=== PATIENT | male | born 1995 | race Caucasian/White ===

== ENCOUNTER 2016-12-29 15:03 | Emergency (ER) | payer MEDICAID ==
[2016-12-29 15:08] VITALS: PULSE 90; RESP 16
[2016-12-29] MEDS ORDERED: IBUPROFEN 600 MG TAB PO ONE (15:16)
--- NOTE | 2016-12-29 15:27 | EDPHY ---
General Narrative: CHIEF COMPLAINT: Left knee pain HISTORY OF PRESENT ILLNESS: Patient complains of left knee pain that started 2 days ago. He was walking up stairs when he skipped the last step. He said he placed his left foot down and while stepping up felt a popping sensation. He has got pain over the central portion of the knee moving superiorly. He has felt difficulty straightening and bending the knee due to swelling. No clicking or catching. Some popping. No pain or injury distally. Mild 1st now increasing to moderate to severe. Some increasing swelling over the past 2 days. No pain in the left hip. He has had some Excedrin with minimal improvement yesterday. No redness. No lacerations. No previous injury to this knee. No other associated complaints or modifying factors. ESTABLISHED ORTHOPEDIST: Does not recall REVIEW OF SYSTEMS: Ten systems reviewed and are negative unless otherwise noted in the HPI PAST MEDICAL HISTORY: Asthma PAST SURGICAL HISTORY: [place] teeth SOCIAL HISTORY: Occasional smoker. No alcohol use. FAMILY HISTORY: Noncontributory EXAMINATION General Appearance: Alert, no distress Cardiovascular: Pulses normal throughout. Symmetric DP pulses 2+. Symmetric PT pulses 2+. Brisk cap refill Neurological: A&O, sensory symmetric, knee and ankle strength symmetric. No footdrop Skin: Warm and dry, no rash. No laceration, abrasion, ecchymosis or cellulitis Extremities: Tenderness of the left knee over the anterior joint line. No crepitus. No instability. Negative Lucas and drawer test. Able to bend and straighten the knee with some hesitation at full extension. No pain to palpation of the left midfoot, left calcaneus or ankle. Range of motion of the left foot and hip intact. Neurovascular intact distally. Psychiatric: Mood and affect normal DIFFERENTIAL DIAGNOSES: Including but not limited to knee sprain, meniscus injury, ACL injury, fracture , foreign body MDM: 3:20 p.m. Acute left knee pain of 2 days duration with injury involved. Examination suggest meniscal injury. No instability of the knee. Neuro intact distally. I have ordered an x-ray and ibuprofen. He is in no acute distress. 4:25 p.m. X-ray as read by me reveals no acute fracture dislocation. Given his significant pain, I will place him in a straight leg immobilizer and provided crutches. He is weight-bearing as tolerated. He is to contact the on-call orthopedist tomorrow morning for follow-up for definitive care. He has ED precautions. Instructions to ice and elevate the extremity. Instructions to take ibuprofen or Aleve [id number] as discussed. He is comfortable with this plan. I have answered all his questions. And he is discharged in stable condition. ED Precautions: Worsening pain. Erythema, edema, cyanosis, pallor, paresthesia or anesthesia. - History Smoking Status: Current every day smoker - Objective Vital Signs: Initial Vital Signs Temperature (C) 98.2 F 12/29/16 15:06 Heart Rate 90 12/29/16 15:06 Respiratory Rate 16 12/29/16 15:06 Blood Pressure 165/77 H 12/29/16 15:06 O2 Sat (%) 96 12/29/16 15:06 O2 Delivery Mode Room Air Allergies/Adverse Reactions: No Known Allergies Allergy (Verified 12/29/16 15:05) Home Medications: Medication Instructions Recorded NK [No Known Home Meds] 12/29/16 Medications Given: Discontinued Medications Ibuprofen (Motrin) 600 mg PO EDNOW ONE Stop: 12/29/16 15:17 Last Admin: 12/29/16 15:21 Dose: 600 mg Departure - Departure Disposition: Home, Routine, Self-Care Clinical Impression: Sprain of left knee Qualifiers: Encounter type: initial encounter Involved ligament of knee: unspecified ligament Qualified Code(s): S83.92XA - Sprain of unspecified site of left knee, initial encounter Condition: Good Instructions: Knee Sprain (ED) Additional Instructions: 1. Weightbearing as tolerated 2. Contact orthopedist tomorrow morning for outpatient follow-up this week 3. ED precautions as discussed Referrals: Jonn Flynn MD [Medical Doctor] - As per Instructions
[2016-12-29 16:44] VITALS: BP 175/76; TEMP 97.9; O2SAT 93
== END 2016-12-29 16:44 | disposition home or self-care (01) ==
DX: S83.92XA Sprain of unspecified site of left knee, initial encounter (principal); J45.909 Unspecified asthma, uncomplicated; F17.200 Nicotine dependence, unspecified, uncomplicated; X58.XXXA Exposure to other specified factors, initial encounter; Y92.89 Other specified places as the place of occurrence of the external cause; Y93.01 Activity, walking, marching and hiking
CPT/HCPCS: L1830